=== PATIENT | male | born 1980 | race Two or more races ===

== ENCOUNTER 2021-10-22 09:28 | Emergency (ER) | payer OTHER ==
[~2021-10-22] VITALS: Ht 167.6 cm; Wt 86.2 kg
[2021-10-22 09:29] VITALS: BP 128/86
[2021-10-22] MEDS ORDERED: LIDOCAINE 1%HCL (LOCAL ANESTH) 10 ML MDV ONE (10:12)
[2021-10-22] MEDS ORDERED: LIDOCAINE 2%HCL (LOCAL ANESTH.) INJ 10ml MDV ONE ×2 (10:14→10:32)
[2021-10-22] MEDS ORDERED: cefTRIAXone SOD 1,000 MG VL IM ONE (10:30)
[2021-10-22] MEDS ORDERED: LIDOCAINE HCL 2 % INJ 2ML MPF NEB ONE (10:30)
[2021-10-22] MEDS ORDERED: TETANUS-DIPTH-ACEL PERTUSSIS 0.5ML SYR Tdap IM ONE (10:30)
[2021-10-22] MEDS ORDERED: LIDOCAINE 1% HCL (LOCAL ANESTH.) INJ 20ML MDV ID ONE (10:30)
[2021-10-22] MEDS ORDERED: LIDOCAINE 1% HCL (LOCAL ANESTH.) INJ 20ML MDV IJ ONE ×2 (10:30→11:00)
[2021-10-22] MEDS ORDERED: IBUP800T27 PO (11:30)
[2021-10-22] MEDS ORDERED: CEPH-509 PO (11:30)
== END 2021-10-22 11:38 | disposition home or self-care (01) ==
LOC: ER 09:28
DX: S60.552A Superficial foreign body of left hand, initial encounter (principal); S62.653A Nondisplaced fracture of middle phalanx of left middle finger, initial encounter for closed fracture; W22.8XXA Striking against or struck by other objects, initial encounter; Y93.89 Activity, other specified; Y92.89 Other specified places as the place of occurrence of the external cause; Y99.8 Other external cause status
CPT/HCPCS: 73130; 90471; 90715; 96372; 99284; J0696; J2001; 10120